=== PATIENT | male | born 2005 | race Caucasian/White ===

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

== ENCOUNTER 2024-01-07 21:32 | Emergency (ER) | payer OTHER ==
[~2024-01-07] VITALS: Ht 182.9 cm; Wt 88.6 kg
[2024-01-07 21:35] VITALS: BP 140/92; TEMP 96.4; O2SAT 97
[2024-01-07] MEDS ORDERED: AMOX875T PO (23:16)
[2024-01-07] MEDS: AMOXICILLIN 500 MG CAP PO ONE (23:24)
== END 2024-01-07 23:30 | disposition home or self-care (01) ==
LOC: M ED 21:32
DX: J02.0 Streptococcal pharyngitis (principal); Z79.2 Long term (current) use of antibiotics

== ENCOUNTER 2024-01-28 23:37 | Emergency (ER) | payer OTHER ==
[~2024-01-28] VITALS: Ht 180.3 cm; Wt 96.3 kg
[~2024-01-28 23:37] MED LIST: AMOX875T PO
[2024-01-28 23:41] VITALS: BP 147/88; TEMP 97.1; O2SAT 100
[2024-01-29] MEDS ORDERED: CLOT1CRE56 TOP (01:00)
== END 2024-01-29 01:26 | disposition home or self-care (01) ==
LOC: M ED 23:37
DX: B35.3 Tinea pedis (principal); Z79.2 Long term (current) use of antibiotics; Z79.899 Other long term (current) drug therapy